=== PATIENT | male | born 1990 | race Caucasian/White ===

== ENCOUNTER 2017-02-02 04:53 | Emergency (ER) | payer MEDICAID ==
[2017-02-02 05:00] VITALS: BMI 29.2
[2017-02-02 05:02] VITALS: BP 130/81; PULSE 80; RESP 15; TEMP 97.9; O2SAT 96
--- NOTE | 2017-02-02 05:18 | ED PDOC ---
Arrival/HPI - General Chief Complaint: Medical Clearance Time Seen by Provider: 02/02/17 05:11 Historian: Patient - History of Present Illness Narrative History of Present Illness (Text): 02/02/17 05:13 Monty Aquino is a 26 year old male who presents to the emergency department complaining of intermittent left lower rib pain for past 1 month. Reports that pain is worsened with movement, deep inspirations and cough. Patient thought pain could be possible due to gas and took Gas-x yesterday for minimal relief. States that he has had persistent cough for the past month. Notes he occasionally takes Ibuprofen for pain management, last taken 3 days ago. Denies any fever, chills, headache, dizziness, difficulty breathing, nausea, vomiting, diarrhea, urinary symptoms or any other complaints at this time. Time/Duration: Other (1 month ) Symptom Onset: Gradual Symptom Course: Intermittent Severity Level: Mild Activities at Onset: Light Past Medical History - Provider Review Nursing Documentation Reviewed: Yes - Past History Past History: No Previous - Infectious Disease Hx of Infectious Diseases: None - Tetanus Immunization Tetanus Immunization: Unknown - Past Medical History Past Medical History: No Previous - Psychiatric Hx Psychophysiologic Disorder: No Hx Anxiety: No Hx Bipolar Disorder: No Hx Depression: No Hx Emotional Abuse: No Hx Hallucinations: No Hx Panic Disorder: No Hx Post Traumatic Stress Disorder: No Hx Psychosis: No Hx Physical Abuse: No Hx Schizophrenia: No Hx Sexual Abuse: No Hx Substance Use: No - Past Surgical History Past Surgical History: No Previous - Anesthesia Hx Anesthesia: No Hx Anesthesia Reactions: No Hx Malignant Hyperthermia: No - Suicidal Assessment Feels Threatened In Home Enviroment: No Family/Social History - Physician Review Nursing Documentation Reviewed: Yes Family/Social History: No Known Family HX Smoking Status: Current Some Days Smoker Hx Alcohol Use: Yes Frequency of alcohol use: Socially Hx Substance Use: No Hx Substance Use Treatment: No Allergies/Home Meds Allergies/Adverse Reactions: Allergies No Known Allergies Allergy (Verified 09/15/16 15:33) Review of Systems - Physician Review All systems were reviewed & negative as marked: Yes - Review of Systems Constitutional: Normal. absent: Fatigue, Fevers Respiratory: Cough. absent: SOB, Sputum Cardiovascular: Normal Gastrointestinal: Normal. absent: Abdominal Pain, Diarrhea, Nausea, Vomiting Genitourinary Male: Normal Musculoskeletal: Other (left lower rib pain) Neurological: Normal. absent: Headache, Dizziness Psychiatric: Normal Physical Exam - Physical Exam Narrative Physical Exam (Text): Constitutional: No acute distress. Head: Normocephalic. Atraumatic. Eyes: PERRL. ENT: Moist mucous membranes. Neck: Supple. Cardiovascular: Regular rate. Chest: Left lower rib tenderness Respiratory: Clear to auscultation bilaterally. GI: Soft. Nontender. Nondistended. Back: No CVA tenderness. Musculoskeletal: No tenderness or swelling of extremities. Skin: No rash. Neurologic: Alert, no focal deficit. Vital Signs Reviewed: Yes Vital Signs Temp Pulse Resp BP Pulse Ox 02/02/17 05:02 97.9 F 80 15 130/81 96 Temperature: Afebrile Blood Pressure: Normal Pulse: Regular Respiratory Rate: Normal Appearance: Positive for: Well-Appearing, Non-Toxic, Comfortable Pain Distress: None Mental Status: Positive for: Alert and Oriented X 3 Medical Decision Making ED Course and Treatment: 02/02/17 05:20 Impression: A 26 year old male who present to emergency department with 1 month duration of left rib pain. Plan: -- Labs -- Toradol -- X-ray ribs -- Reassess and disposition Progress Notes: XR negative for fx, PTX, pleural effusion, or air under diaphragm. Labs unremarkable. Will discharge home, continue NSAIDs, f/u PMD, return to ER for worsening pain, fever, dyspnea. - Lab Interpretations Lab Results: 02/02/17 05:20 02/02/17 05:20 Lab Results 02/02/17 05:20: WBC 5.6, RBC 5.34, Hgb 17.1, Hct 48.1, MCV 90.1, MCH 32.0, MCHC 35.6, RDW 12.5, Plt Count 240, MPV 10.0, Gran % 50.9, Lymph % (Auto) 30.8, [place] % (Auto) 16.7 H, Eos % (Auto) 1.4 L, Baso % (Auto) 0.2, Gran # 2.84, Lymph # 1.7 , [place] # 0.9 H, Eos # 0.1, Baso # 0.01, Sodium 140, Potassium 4.1, Chloride 99, Carbon Dioxide 29, Anion Gap 16, BUN 12, Creatinine 0.8, Est GFR ( Amer) > 60, Est GFR (Non-Af Amer) > 60, Random Glucose 95, Calcium 9.3, Total Bilirubin 0.7, AST 45, ALT 35, Alkaline Phosphatase 70, Total Protein 8.7 H, Albumin 4.5, Globulin 4.3, Albumin/Globulin Ratio 1.0 L, Lipase 97 - RAD Interpretation Radiology Orders: 02/02/17 05:11 RIBS LEFT & PA CHEST [RAD] Stat - Medication Orders Current Medication Orders: Discontinued Medications Ketorolac Tromethamine (Toradol) 30 mg IVP STAT STA Stop: 02/02/17 05:12 Last Admin: 02/02/17 05:21 Dose: 30 MG IVP Administration Document 02/02/17 05:21 MR (Rec: 02/02/17 05:21 MR [id number]) Charges for Administration # of IVP Administrations 1 - Scribe Statement The provider has reviewed the documentation as recorded by the Geraldibe Sloane Grace Provider Attestation: All medical record entries made by the Geraldibnadeem were at my direction and personally dictated by me. I have reviewed the chart and agree that the record accurately reflects my personal performance of the history, physical exam, medical decision making, and the department course for this patient. I have also personally directed, reviewed, and agree with the discharge instructions and disposition. Disposition/Present on Arrival - Present on Arrival Any Indicators Present on Arrival: No History of DVT/PE: No History of Uncontrolled Diabetes: No Urinary Catheter: No History of Decub. Ulcer: No History Surgical Site Infection Following: None - Disposition Have Diagnosis and Disposition been Completed?: Yes Diagnosis: Chest wall pain Disposition: HOME/ ROUTINE Disposition Time: 05:52 Patient Plan: Discharge Condition: STABLE Discharge Instructions (ExitCare): Chest Wall Pain (ED) Prescriptions: Ibuprofen [Motrin] 600 mg PO Q6 #25 tab Forms: WORK NOTE
[2017-02-02 05:26] LABS: ADD MANUAL DIFF? NO
[2017-02-02 05:42] LABS: ALKALINE PHOSPHATASE 70 U/L (38-133); ALT/SGPT 35 U/L (7-56); AST/SGOT 45 U/L (15-59); BILIRUBIN,TOTAL 0.7 mg/dL (0.2-1.3); BLOOD UREA NITROGEN 12 mg/dL (7-21); CALCIUM 9.3 mg/dL (8.4-10.5); CARBON DIOXIDE 29 mmol/L (21-33); CHLORIDE 99 mmol/L (95-110); GFR AFRICAN-AMERICAN > 60; GLUCOSE,RANDOM 95 mg/dL (70-110); LIPASE 97 U/L (23-300); POTASSIUM 4.1 mmol/L (3.6-5.0); SODIUM 140 mmol/L (132-148); TOTAL PROTEIN 8.7 g/dL (5.8-8.3)
[2017-02-02 05:44] LABS: BASO # 0.01 K/mm3 (0.0-2.0); BASO % 0.2 % (0.0-3.0); EOS # 0.1 (0.0-0.7); EOS % 1.4 % (1.5-5.0); GRAN # 2.84 (1.4-6.5); GRAN % 50.9 % (50.0-68.0); HEMATOCRIT 48.1 % (42.0-52.0); LYMPH # 1.7 (1.2-3.4); LYMPH % 30.8 % (22.0-35.0); MEAN CELL VOLUME 90.1 fL (80.0-105.0); MEAN CORPUSCULAR HGB CONC 35.6 g/dl (31.0-37.0); MONO # 0.9 (0.1-0.6); MONO % 16.7 % (1.0-6.0); PLATELET COUNT 240 10^3/uL (120.0-450.0); RED CELL DISTRIBUTION WIDTH 12.5 % (11.5-14.5); WHITE BLOOD COUNT 5.6 10^3/ul (4.5-11.0)
--- NOTE | 2017-02-02 09:23 | RAD ---
PROCEDURE: Radiographs of the Chest and Left Ribs. HISTORY: L sided thoracic pain COMPARISON: None available. TECHNIQUE: Frontal radiograph of the chest and multiple oblique radiographs of the left ribs were obtained. FINDINGS: LEFT RIBS: No fracture or focal lesion visualized. LUNGS: Clear. PLEURA: No pneumothorax or pleural fluid. CARDIOVASCULAR: Normal sized heart. No pulmonary vascular congestion. OTHER FINDINGS: None. IMPRESSION: Unremarkable radiographs of the chest and left ribs. No left rib fracture.
== END 2017-02-02 06:02 | disposition home or self-care (01) ==
LOC: ED 04:53
DX: R07.89 Other chest pain (principal)
CPT/HCPCS: 71101; 80053; 83690; 85025; 96374; 99282; J1885

== ENCOUNTER 2017-07-15 13:33 | Emergency (ER) | payer SELFPAY ==
[2017-07-15 13:33] VITALS: BMI 29.2
[2017-07-15 14:01] VITALS: TEMP 97.6
--- NOTE | 2017-07-15 14:21 | ED PDOC ---
Arrival/HPI - General Chief Complaint: Upper Extremity Problem/Injury Time Seen by Provider: 07/15/17 14:18 Historian: Patient - History of Present Illness Narrative History of Present Illness (Text): 07/15/17 14:19 This 26 yo male presents to this ED c/o left arm numbness, and tingling x 2 days. Paresthesias, extending to his left thumb. Patient admits going to gym, and chronic intermittent left shoulder pain. Denies other complains. Past Medical History - Past History Past History: No Previous - Infectious Disease Hx of Infectious Diseases: None - Tetanus Immunization Tetanus Immunization: Unknown - Past Medical History Past Medical History: No Previous - Psychiatric Hx Psychophysiologic Disorder: No Hx Anxiety: No Hx Bipolar Disorder: No Hx Depression: No Hx Emotional Abuse: No Hx Hallucinations: No Hx Panic Disorder: No Hx Post Traumatic Stress Disorder: No Hx Psychosis: No Hx Physical Abuse: No Hx Schizophrenia: No Hx Sexual Abuse: No Hx Substance Use: No - Past Surgical History Past Surgical History: No Previous - Anesthesia Hx Anesthesia: No Hx Anesthesia Reactions: No Hx Malignant Hyperthermia: No - Suicidal Assessment Feels Threatened In Home Enviroment: No Family/Social History Smoking Status: Current Some Days Smoker Hx Alcohol Use: Yes Frequency of alcohol use: Socially Hx Substance Use: No Hx Substance Use Treatment: No Allergies/Home Meds Allergies/Adverse Reactions: Allergies No Known Allergies Allergy (Verified 07/15/17 14:01) Physical Exam Vital Signs Temp Pulse Resp BP Pulse Ox 07/15/17 13:57 97.6 F 66 18 112/74 97 Medical Decision Making ED Course and Treatment: 07/15/17 15:09 Re-evaluation. Patient feels better. Discussed results and plan with patient who expresses understanding. Counseling was provided regarding the diagnosis and prognosis. All questions answered and there is agreement with the plan to discharge home with instructions. Patient stable for discharge. Return if symptoms persist or worsen. Re-evaluation Time: 15:09 Reassessment Condition: Re-examined, Improved - RAD Interpretation Narrative RAD Interpretations (Text): 07/15/17 15:09 Cervical x-rays: No fx Radiology Orders: 07/15/17 14:18 CERVICAL SPINE >18YR W/OBLIQUE [RAD] Stat Disposition/Present on Arrival - Present on Arrival Any Indicators Present on Arrival: No History of DVT/PE: No History of Uncontrolled Diabetes: No Urinary Catheter: No History of Decub. Ulcer: No History Surgical Site Infection Following: None - Disposition Have Diagnosis and Disposition been Completed?: Yes Diagnosis: Cervical radiculopathy Disposition: HOME/ ROUTINE Disposition Time: 15:10 Patient Plan: Discharge Patient Problems: Current Active Problems Problem Status Onset Cervical radiculopathy Acute Condition: GOOD Discharge Instructions (ExitCare): Cervical Radiculopathy (ED) Additional Instructions: Call private doctor for follow up visit in 1-2 days. Take medication as instructed. Muscle relaxer can make you feel drowsy, so avoid driving or opereting machinery. Return to emergency if symptoms worsen Prescriptions: Methocarbamol [Robaxin-750] 750 mg PO TID #21 tab Naproxen 500 mg PO BID PRN #14 tab PRN Reason: Pain, Severe (8-10) Referrals: PCP,NO [Primary Care Provider] - Follow up with primary [facility] [Outside] - Follow up with primary [facility] [Outside] - Follow up with primary Forms: [employer] (Mongolian)
--- NOTE | 2017-07-15 15:09 | RAD ---
PROCEDURE: Cervical Spine Radiographs. HISTORY: Pain, left arm numbness. COMPARISON: None. FINDINGS: BONES: Alignment maintained. No fracture. Dens Intact. DISC SPACES: Normal. SOFT TISSUES: Normal. No prevertebral soft tissue swelling. OTHER FINDINGS: None. IMPRESSION: No significant or acute findings to account for/ related to the clinical presentation. Concordant results with the preliminary interpretation rendered by the emergency department physician procedure.
[2017-07-15 15:16] VITALS: BP 120/74; PULSE 80; RESP 16; O2SAT 99
== END 2017-07-15 15:22 | disposition home or self-care (01) ==
LOC: ED 13:33
DX: M54.12 Radiculopathy, cervical region (principal)

== ENCOUNTER 2018-03-30 19:41 | Emergency (ER) | payer OTHER ==
[2018-03-30 19:41] VITALS: BMI 29.2
[2018-03-30] MEDS ORDERED: Sodium Chloride 0.9% 1,000 ML IV STA (19:52)
--- NOTE | 2018-03-30 20:02 | ED PDOC ---
Arrival/HPI - General Chief Complaint: GI Problem Time Seen by Provider: 03/30/18 19:43 Historian: Patient - History of Present Illness Narrative History of Present Illness (Text): 03/30/18 19:47 A 27 year old male, whose past medical history includes substance abuse ( cannabis), presents to the emergency department for evaluation of recurring episodes of vomiting with associated nausea. Patient reports he was binge- drinking Mulugeta Lester drink last night and began experiencing symptoms today. Patient denies any fever, chills, abdominal pain, or any other complaints at this time. Also, patient denies any substance abuse. No PMD Past Medical History - Provider Review Nursing Documentation Reviewed: Yes - Past History Past History: No Previous - Infectious Disease Hx of Infectious Diseases: None - Tetanus Immunization Tetanus Immunization: Unknown - Past Medical History Past Medical History: No Previous - Psychiatric Hx Psychophysiologic Disorder: No Hx Anxiety: No Hx Bipolar Disorder: No Hx Depression: No Hx Emotional Abuse: No Hx Hallucinations: No Hx Panic Disorder: No Hx Post Traumatic Stress Disorder: No Hx Psychosis: No Hx Physical Abuse: No Hx Schizophrenia: No Hx Sexual Abuse: No Hx Substance Use: Yes (CANNABIS) - Past Surgical History Past Surgical History: No Previous - Anesthesia Hx Anesthesia: No Hx Anesthesia Reactions: No Hx Malignant Hyperthermia: No - Suicidal Assessment Feels Threatened In Home Enviroment: No Family/Social History - Physician Review Nursing Documentation Reviewed: Yes Family/Social History: No Known Family HX Smoking Status: Current Some Days Smoker Hx Alcohol Use: Yes Hx Substance Use: Yes (CANNABIS) Hx Substance Use Treatment: No Allergies/Home Meds Allergies/Adverse Reactions: Allergies No Known Allergies Allergy (Verified 03/30/18 19:49) Review of Systems - Physician Review All systems were reviewed & negative as marked: Yes - Review of Systems Constitutional: absent: Fevers, Night Sweats Gastrointestinal: Nausea, Vomiting. absent: Abdominal Pain Physical Exam Vital Signs Temp Pulse Resp BP Pulse Ox 03/30/18 22:42 97.9 F 80 18 136/74 98 - Systems Exam Pupils: Present: PERRL Extroacular Muscles: Present: EOMI Conjunctiva: Present: Normal Mouth: Present: Dry Neck: Present: Normal Range of Motion, Other (neck is supple) Respiratory/Chest: Present: Clear to Auscultation, Good Air Exchange. No: Respiratory Distress, Accessory Muscle Use Cardiovascular: Present: Regular Rate and Rhythm, Normal S1, S2. No: Murmurs Abdomen: No: Tenderness, Distention, Peritoneal Signs Back: Present: Normal Inspection Upper Extremity: Present: Normal Inspection. No: Cyanosis, Edema Lower Extremity: Present: Normal Inspection. No: Edema Neurological: Present: GCS=15, CN II-XII Intact, Speech Normal, Other (no focal deficits) Skin: Present: Warm, Dry, Normal Color. No: Rashes Psychiatric: Present: Alert, Oriented x 3, Normal Insight, Normal Concentration Medical Decision Making ED Course and Treatment: 03/30/18 19:52 Impression: 27 year old male here for evaluation of recurring vomiting with associated nausea. Plan: -- Labs -- Pepcid -- Zofran -- IV Fluids -- Reassess and disposition Progress Notes: 03/30/18 23:39 On re-evaluation, patient feels better and is in no acute distress. I have discussed the results and plan with the patient, who expresses understanding. Patient in agreement with plan to be discharged home. Patient is stable for discharge. Patient was instructed to follow up with physician or return if symptoms worsen or new concerning symptoms arise. - Lab Interpretations Lab Results: 03/30/18 19:55 03/30/18 19:55 Lab Results 03/30/18 19:55: WBC 12.9 H D, RBC 5.32, Hgb 17.0, Hct 46.8, MCV 88.0, MCH 32.0, MCHC 36.3, RDW 12.3, Plt Count 299, MPV 10.4 03/30/18 19:55: Alcohol, Quantitative < 10 03/30/18 19:55: Sodium 146, Potassium 4.0, Chloride 102, Carbon Dioxide 24, Anion Gap 23 H, BUN 17, Creatinine 1.0, Est GFR ( Amer) > 60, Est GFR ( Non-Af Amer) > 60, Random Glucose 104, Calcium 10.0, Total Bilirubin 1.2, AST 44 , ALT 50, Alkaline Phosphatase 75, Total Protein 9.0 H, Albumin 5.0 H, Globulin 4.1, Albumin/Globulin Ratio 1.2, Lipase 64 - Medication Orders Current Medication Orders: Discontinued Medications Famotidine (Pepcid) 20 mg IVP STAT STA Stop: 03/30/18 19:53 Last Admin: 03/30/18 20:08 Dose: 20 mg IVP Administration Document 03/30/18 20:08 SS (Rec: 03/30/18 20:08 SS [id number]) Charges for Administration # of IVP Administrations 1 Sodium Chloride (Sodium Chloride 0.9%) 1,000 mls @ 999 mls/hr IV .Q1H1M STA Stop: 03/30/18 20:52 Last Admin: 03/30/18 20:08 Dose: 999 mls/hr eMAR Start Stop Document 03/30/18 20:08 SS (Rec: 03/30/18 20:09 SS [id number]) Intravenous Solution Start Date 03/30/18 Start Time 20:09 End Date 03/30/18 End time 21:09 Total Infusion Time 60 Ondansetron HCl (Zofran Inj) 4 mg IVP ONCE ONE Stop: 03/30/18 19:53 Last Admin: 03/30/18 20:08 Dose: 4 mg IVP Administration Document 03/30/18 20:08 SS (Rec: 03/30/18 20:08 SS [id number]) Charges for Administration # of IVP Administrations 1 Ondansetron HCl (Zofran Inj) 4 mg IVP ONCE ONE Stop: 03/30/18 22:35 Last Admin: 03/30/18 22:45 Dose: 4 mg IVP Administration Document 03/30/18 22:45 SS (Rec: 03/30/18 22:45 SS [id number]) Charges for Administration # of IVP Administrations 1 - Scribe Statement The provider has reviewed the documentation as recorded by the Francisco Morrell Provider Scribe Attestation: All medical record entries made by the Geraldibnadeem were at my direction and personally dictated by me. I have reviewed the chart and agree that the record accurately reflects my personal performance of the history, physical exam, medical decision making, and the department course for this patient. I have also personally directed, reviewed, and agree with the discharge instructions and disposition. Disposition/Present on Arrival - Present on Arrival Any Indicators Present on Arrival: No History of DVT/PE: No History of Uncontrolled Diabetes: No Urinary Catheter: No History of Decub. Ulcer: No History Surgical Site Infection Following: None - Disposition Have Diagnosis and Disposition been Completed?: Yes Diagnosis: Alcoholic gastritis Disposition: HOME/ ROUTINE Disposition Time: 23:35 Patient Plan: Discharge Patient Problems: Current Active Problems Problem Status Onset Alcoholic gastritis Acute Condition: GOOD Discharge Instructions (ExitCare): Gastritis (DC) Additional Instructions: Recommend small amounts frequent fluids/bland diet/meds as prescribed/follow up with your doctor/any recurrent worsening symptoms return to the emergency room Prescriptions: Ondansetron [Zofran Odt] 4 mg PO Q6 #12 odt Referrals: Keyshawn Morales MD, PhD [Primary Care Provider] - Follow up with primary Forms: [employer] (O[place]i)
[2018-03-30 20:36] LABS: MEAN CORPUSCULAR HGB CONC 36.3 g/dl (31.0-37.0); MEAN PLATELET VOLUME 10.4 fl (7.0-11.0); RBC 5.32 10^6/uL (3.5-6.1); RED CELL DISTRIBUTION WIDTH 12.3 % (11.5-14.5); WHITE BLOOD COUNT 12.9 10^3/ul (4.5-11.0)
[2018-03-30 20:47] LABS: ALB/GLOB RATIO 1.2 (1.1-1.8); ALT/SGPT 50 U/L (7-56); AST/SGOT 44 U/L (17-59); BLOOD UREA NITROGEN 17 mg/dL (7-21); GFR AFRICAN-AMERICAN > 60; GFR NON-AFRICAN AMERICAN > 60; LIPASE 64 U/L (23-300)
[2018-03-30 22:43] VITALS: RESP 18; TEMP 97.9
[2018-03-30 23:49] VITALS: BP 129/89; PULSE 86; O2SAT 99
== END 2018-03-31 00:13 | disposition home or self-care (01) ==
LOC: ED 19:41
DX: K29.20 Alcoholic gastritis without bleeding (principal); F17.200 Nicotine dependence, unspecified, uncomplicated
CPT/HCPCS: 80053; 80320; 83690; 85027; 96361; 96374; 96375; 99283; J2405; J7040